=== PATIENT | male | born 1960 | race Caucasian/White ===

== ENCOUNTER 2017-12-18 12:40 | Inpatient (IN) ==
[2017-12-18] MEDS ORDERED: Carvedilol 12.5 MG Tablet ONE (22:15)
[2017-12-19] MEDS ORDERED: Potassium Chlor 20 mEq Premix 20 MEQ/100 ML PIGGYBACK IV.SIG PRN ×2 (00:01)
[2017-12-19] MEDS ORDERED: Potassium Chloride 25 MEQ Effervescent Tablet PO PRN (00:01)
[2017-12-19] MEDS ORDERED: Acetaminophen 325 MG Tablet PO PRN (00:01)
[2017-12-19] MEDS ORDERED: Potassium Phosphate Inj 30 MMOL in Sodium Chlor 0.9% Inj 250 ML IV.SIG PRN (00:01)
[2017-12-19] MEDS ORDERED: Sodium Phosphate Inj 30 MMOL in Sodium Chlor 0.9% Inj 250 ML IV.SIG PRN (00:01)
[2017-12-19] MEDS ORDERED: Magnesium Sulfate Inj 2 GM in Sodium Chlor 0.9% Inj 96 ML IV.SIG PRN (00:01)
[2017-12-19] MEDS ORDERED: Magnesium Oxide 400 MG Tablet PO PRN (00:01)
[2017-12-19] MEDS ORDERED: Magnesium Sulfate Inj 4 GM in Sodium Chlor 0.9% Inj 92 ML IV.SIG PRN (00:01)
[2017-12-19] MEDS ORDERED: Potassium Phosphate 500 MG Soluble Tablet PO PRN ×2 (00:01)
[2017-12-19] MEDS ORDERED: Bisacodyl 10 MG Supp RECTAL PRN (00:01)
[2017-12-19] MEDS ORDERED: Propofol 1000 mg/100 ml Inj 1,000 MG/100 ML BOTTLE IV.CONT PRN (01:00)
[2017-12-19] MEDS: Oral Hygiene Kit OROPHARYNG SCH ×3 (02:07→20:42)
[2017-12-19] MEDS ORDERED: Propofol 1000 mg/100 ml Inj 1,000 MG/100 ML BOTTLE ONE (02:16)
[2017-12-19] MEDS ORDERED: fentaNYL 10 mcg/mL Premix Drip 2,500 MCG/250 ML BAG IV.SIG PRN (02:54)
--- NOTE | 2017-12-19 03:45 | XR ---
EXAM DATE: 12/19/2017 3:35 AM EDT AGE/SEX: 57 years / Male INDICATIONS: Respiratory distress. CLINICAL DATA: This is the patient's subsequent encounter. Patient reports that signs and symptoms h ave been present for 2 days and indicates a pain score of Nonresponsive. MEDICAL/SURGICAL HISTORY: Non-responsive. Pacemaker. COMPARISON: [facility], CHEST SINGLE AP, 12/18/2017. . FINDINGS: Endotracheal tube in good position. NG enters the stomach. Pacer leads unchanged. Mild basilar opacity similar to December 18. No pneumothorax or significant effusi on. CONCLUSION: Mild basilar density, probably atelectasis. Support apparatus in good position. Electronically signed by: Curtis Roque MD 12/19/2017 3:44 AM EDT
[2017-12-19] MEDS ORDERED: Chlorhexidine Gluconate 2% 1 Pack (2 Cloths) TOPICAL PRN (04:00)
[2017-12-19] MEDS: Chlorhexidine Gluconate 2% 1 Pack (2 Cloths) TOPICAL SCH (04:34)
[2017-12-19 05:22] LABS: Baso % (Auto) 0.3 % (0.0-2.0); Eos # (Auto) 0.1 th/mm3 (0.0-0.4); Eos % (Auto) 1.6 % (0.0-4.0); Hematocrit 38.7 % (39.0-51.0); Hemoglobin 12.3 gm/dL (13.0-17.0); Lymph % (Auto) 14.3 % (9.0-44.0); Mean Corpuscular HGB Conc 31.7 % (32.0-36.0); Mean Corpuscular Volume 91.3 fL (80.0-100.0); Mean Platelet Volume 7.3 fL (7.0-11.0); Mono # (Auto) 0.5 th/mm3 (0.0-0.9); Mono % (Auto) 7.7 % (0.0-8.0); Neut # (Auto) 5.5 th/mm3 (1.8-7.7); Neut % (Auto) 76.1 % (16.0-70.0); Platelet Count 144 th/mm3 (150-450); Red Blood Count 4.24 mil/mm3 (4.50-5.90); Red Cell Distribution Width 15.7 % (11.6-17.2); White Blood Count 7.1 th/mm3 (4.0-11.0)
[2017-12-19 05:38] LABS: ABG Base Excess -4.7 mmol/L (-2-2); ABG PCO2 32 mmHg (38-42); ABG PO2 159 mmHg (61-120)
[2017-12-19 05:38] LABS: Chloride 105 meq/L (98-107); Potassium 3.8 meq/L (3.5-5.1); Sodium 137 meq/L (136-145)
[2017-12-19 05:44] LABS: Albumin 3.3 g/dL (3.4-5.0); Anion Gap 12 meq/L (5-15); Carbon Dioxide 19.9 meq/L (21.0-32.0); Glucose,Random 98 mg/dL (74-106); Magnesium 1.9 mg/dL (1.5-2.5)
[2017-12-19 05:45] LABS: Blood Urea Nitrogen 8 mg/dL (7-18)
[2017-12-19 05:47] LABS: Alanine Aminotransferase 55 U/L (12-78); Aspartate Aminotransferase 86 U/L (15-37); Glomerular Filtration Rate Greater Than 89 mL/min (>89)
[2017-12-19 05:51] LABS: Alkaline Phosphatase 90 U/L (45-117); Phosphorus 2.9 mg/dL (2.5-4.9)
[2017-12-19 06:03] LABS: Total Protein 6.7 g/dL (6.4-8.2)
[2017-12-19 06:05] LABS: Creatine Kinase 87 U/L (39-308)
[2017-12-19] MEDS ORDERED: Metoprolol Inj 5 MG/5 ML Vial IV.PUSH PRN (06:55)
--- NOTE | 2017-12-19 07:04 | P.PNCC ---
Subjective Subjective Remarks/Hospital Course: The patient is a 57-year-old male presented to the ED [facility] in respiratory distress. Per report, EMS dispatche received a call for shortness of breath, dispatch stated they could hear audible wheezing. EMS states when they arrived the patient was on his front porch, on his knees , complaining of shortness of breath and chest pain. The patient was severely diaphoretic and they placed him in the ambulance ,he became somewhat unresponsive. They stated he was no longer talking, and had increased work of breathing. The patient was transported utilizing bag valve mask ventilation and oxygen enroute to the hospital. Per EMS report, the patient was tachycardic and it appeared that every once a while he would "shiver, they thought possibly he was being defibrillated by his AICD/pacemaker. No further information is obtainable from EMS. Upon arrival the patient was nonverbal, would withdrawal to pain, but had an elevated work of breathing with a respiratory rate in the 40s and was severely diaphoretic with a heart rate in the 120s. The patient was emergently intubated upon arrival to [place] ED. EKG was performed which revealed atrial fibrillation RVR with a rate of 115. Upon review of information the patient was noted to have an AICD, device with anti-tachycardia rhythm detection that is off-to include atrial tach, atrial fib ,V. fib ,V. tach. It's function is only as a dual demand pacemaker for a base rate of 50. Interrogation was performed by [employer] while patient was in the ED. Review of records from [facility] show that the patient had been seen once by the family medicine team 04/2017 and has a history of atrial fibrillation, and the patient had had the defibrillator function discontinued after an episode of 6 shocks in 1 day secondary to malfunction per review of the records, the patient also had a history of cardiac arrest with a prolonged hospitalization in 2016. Review of medical records revealed the patient has a medical history significant for CHF, atrial fibrillation, hypertension, chronic pain syndrome, scoliosis, DJD peptic ulcer, depression, anxiety, OCD paranoid personality disorder and elevated liver enzymes. The patient also has a history of cervical stenosis C4-C5. Laboratory studies reveal a metabolic acidosis, urine toxicity screen positive for alcohol, and benzodiazepine. Subjective: 12/19: Overnight the patient remained mildly sedated. This a.m. the patient is awake and alert responding to commands. CPAP trials initiated. Objective Vital Signs / I&O: Vital Signs 12/19/17 00:07 12/19/17 01:00 12/19/17 01:15 Temperature 100.0 F H Pulse Rate 106 H 106 H Respiratory Rate 18 17 18 Blood Pressure 117/86 Pulse Oximetry 100 100 100 12/19/17 02:00 12/19/17 03:00 12/19/17 03:20 Temperature Pulse Rate 106 H 108 H 109 H Respiratory Rate 18 17 18 Blood Pressure 119/86 112/86 Pulse Oximetry 100 100 12/19/17 04:00 12/19/17 04:40 12/19/17 05:00 Temperature Pulse Rate 110 H 110 H Respiratory Rate 17 18 17 Blood Pressure 110/84 104/82 Pulse Oximetry 100 100 100 12/19/17 05:39 Temperature 98.3 F Pulse Rate Respiratory Rate Blood Pressure Pulse Oximetry Intake & Output 12/18/17 12/18/17 12/19/17 06:59 18:59 06:59 Weight 94 kg Result Diagrams: 12/19/17 05:03 12/19/17 05:03 Imaging: Chest X-Ray 12/19/17 00:00 CONCLUSION: Mild basilar density, probably atelectasis. Support apparatus in good position. Objective Remarks: GENERAL: This is a well-developed well-nourished obese patient awake and alert intubated following command SKIN: Warm and dry. HEAD: Atraumatic. Normocephalic. EYES: Pupils equal and round. No scleral icterus. No injection or drainage. ENT: No nasal bleeding or discharge. Mucous membranes pink and moist. NECK: Trachea midline. No JVD. CARDIOVASCULAR: Normal rate, regular rhythm. RESPIRATORY: No accessory muscle use. Clear to auscultation. Breath sounds equal bilaterally. GASTROINTESTINAL: Abdomen soft, non-tender, nondistended. No guarding. Bowel sounds active. MUSCULOSKELETAL: Extremities without clubbing, cyanosis, or edema. No obvious deformities. NEUROLOGICAL: Awake and alert. RASS 0. No gross focal/sensory deficits. Follows commands in all 4 extremities. Assessment and Plan - Assessment and Plan Plan: Assessment and Plan Problem List: (1) Pacemaker ICD Code: Z95.0 - Presence of cardiac pacemaker (2) Atrial fibrillation with RVR ICD Code: I48.91 - Unspecified atrial fibrillation Status: Acute (3) Respiratory distress ICD Code: R06.03 - Acute respiratory distress Status: Acute Assessment and Plan Assessment This is a 57-year-old male with a significant cardiac history details unobtainable at this time that presumably went into a cardiac arrhythmia, now intubated and sedated. The patient currently is at risk for further cardiac deterioration admit to ICU. Plan by systems: Neurologic: EtOH use disorder Depression Anxiety OCD Chronic pain syndrome Paranoid personality disorder Propofol infusion to maintain ventilator synchrony Monitor for signs of alcohol withdrawal Seizure precautions Daily sedation vacation Noted patient has C4-C5 cervical stenosis, per patient records patient's wheelchair-bound with noted tremors. Previously being worked up for Parkinson' s 04/2017 CT brain negative Ammonia level 26 Resume home medications when patient is clinically applicable Urine toxicity screen-EtOH 9, positive for benzodiazepines Hold sertraline and BuSpar for now ( home medication)-per reviewed medical records the patient was under care of a psychiatrist in [place] Respiratory: Acute hypoxemic respiratory failure 12/18 patient intubated in ED PRVC mode Repeat ABG-7.3 8/34/170/20/-4.1 Ventilator bundle Duo nebs every 6 hours scheduled and every 2 hours as needed 12/18 CT pulmonary angiogram negative 12/19 chest x-rayatelectasis Begin CPAP trials, obtain SBT plan for extubation Cardiovascular: Implanted AICD/pacemaker Medtronic S/P cardiac Ablation A. fib RVR History of CHF History of cardiac arrest 2016 Hypertension EKG A. fib RVR rate 115, currently A. fib heart rate 90's Maintain MAP greater than 65 Consult cardiology BNP 114-> 624 Metoprolol 2.5 mg every 6 hours as needed for heart rate greater than 100 Initial troponin < 0.02,-> 0.02 Obtain cardiology medical records from [place] Dr. Avila [phone] Continue patient's home medications- flecainide 100 mg BID, carvedilol 25 mg BID, and lisinopril 40 mg/day Obtain echo Renal: Insert and maintain Steward -- Strict I/Os FEN/GI: Gentle hydration normal saline at 42 cc an hour Maintain n.p.o. status for now Bowel regimen Famotidine for GI prophylaxis Zofran for nausea Heme/ID: Follow-up blood urine and sputum cultures Monitor CBC INR 1.1-no previous anticoagulation noted in medical records Endocrine: Glucose monitoring per ICU protocol -- SSI Prophylaxis: GI Prophylaxis Famotidine BID DVT Prophylaxis -- SCDs Heparin subcu BID Lines: Peripheral IVs 2 . central line if indicated my billing statement This patient remains critically ill with one or more organ systems which are or may become a threat to life. I have spent in excess of 47 minutes discontinuously in the care and management of this patient. This time is exclusive of procedures, and includes, but is not limited to, evaluation of the patient, review of the medical record, discussions with family, consultants, nursing staff, or respiratory therapy, and documentation in the medical record. Code Status: Full Discussed Condition With: WATERSHED TENDER at bedside and patient
[2017-12-19] MEDS: Famotidine PF Inj 20 MG/2 ML Vial IV.PUSH SCH ×3 (07:54→21:04)
[2017-12-19] MEDS: Heparin - SQ 10,000 UNITS/ML Vial SQ SCH ×3 (07:54→21:04)
[2017-12-19] MEDS: Lisinopril 20 MG Tablet PO SCH (09:35)
[2017-12-19] MEDS: Carvedilol 12.5 MG Tablet PO SCH ×2 (09:35→21:06)
[2017-12-19] MEDS: Senna/Docusate Sodium 8.6/50 MG Tablet PO SCH ×2 (09:36→21:10)
[2017-12-19] MEDS: Flecainide 100 MG Tablet PO SCH ×2 (09:36→21:07)
[2017-12-19] MEDS ORDERED: ALPRAZolam 0.5 MG Tablet PO PRN (10:56)
[2017-12-19] MEDS: Sertraline 100 MG Tablet PO SCH (12:35)
--- NOTE | 2017-12-19 13:22 | ECHRPT ---
Indication: sob CONCLUSIONS The left ventricular systolic function is normal with an estimated ejection fraction in the range of 55-60%. Normal left ventricular size. Wall thickness is normal. No regional wall motion abnormalities are present. A pacemaker wire is noted. There is a pacemaker wire present in the right atrial cavity. There is trace tricuspid valve regurgitation. The estimated pulmonary arterial pressure is 25.7 mmHg. BP: / HR: Rhythm: Sinus MEASUREMENTS (Male / Female) Normal Values Technical Quality:Poor 2D ECHO LV Diastolic Diameter PLAX 3.7 cm 4.2 - 5.9 / 3.9 - 5.3 cm LV Systolic Diameter PLAX 2.8 cm IVS Diastolic Thickness 1.1 cm 0.6 - 1.0 / 0.6 - 0.9 cm LVPW Diastolic Thickness 1.1 cm 0.6 - 1.0 / 0.6 - 0.9 cm LV Relative Wall Thickness 0.6 RV Internal Dim ED PLAX 2.7 cm LVOT Diameter 1.8 cm LA Systolic Diameter LX 3.2 cm 3.0 - 4.0 / 2.7 - 3.8 cm M-MODE Aortic Root Diameter MM 2.8 cm LA Systolic Diameter MM 3.2 cm LA Ao Ratio MM 1.1 AV Cusp Separation MM 2.2 cm DOPPLER AV Peak Velocity 93.7 cm/s AV Peak Gradient 3.5 mmHg LVOT Peak Velocity 82.9 cm/s LVOT Peak Gradient 2.7 mmHg AV Area Cont Eq pk 2.3 cm LV E' Lateral Velocity 7.3 cm/s LV E' Septal Velocity 12.9 cm/s TR Peak Velocity 198.0 cm/s TR Peak Gradient 15.7 mmHg Right Atrial Pressure 10.0 mmHg Pulmonary Artery Systolic Pressu 25.7 mmHg Right Ventricular Systolic Press 25.7 mmHg PV Peak Velocity 81.4 cm/s PV Peak Gradient 2.7 mmHg FINDINGS LEFT VENTRICLE The left ventricular systolic function is normal with an estimated ejection fraction in the range of 55-60%. Normal left ventricular size. Wall thickness is normal. No regional wall motion abnormalities are present. RIGHT VENTRICLE A pacemaker wire is noted. LEFT ATRIUM The left atrial size is normal. RIGHT ATRIUM There is a pacemaker wire present in the right atrial cavity. ATRIAL SEPTUM Normal atrial septal thickness without atrial level shunting by limited color doppler interrogation. AORTA The aortic root and proximal ascending aorta are normal in size on limited imaging. MITRAL VALVE Structurally normal mitral valve. No mitral valve stenosis or regurgitation. AORTIC VALVE Trileaflet aortic valve. No aortic valve stenosis or regurgitation. TRICUSPID VALVE Structurally normal tricuspid valve. There is trace tricuspid valve regurgitation. The estimated pulmonary arterial pressure is 25.7 mmHg. PULMONARY VALVE No pulmonary valve regurgitation or stenosis. VESSELS The inferior vena cava is normal in size. PERICARDIUM No pericardial effusion. Raul Greene MD, FACC (Electronically Signed) Final Date:19 December 2017 13:21
[2017-12-19] MEDS: Chlorhexidine 0.12% Oral Kit 15 ML UDC OROPHARYNG SCH ×2 (20:42→21:07)
[2017-12-20] MEDS: Oral Hygiene Kit OROPHARYNG SCH (01:44)
[2017-12-20 04:58] LABS: Hematocrit 39.3 % (39.0-51.0); Mean Corpuscular Hemoglobin 27.9 pg (27.0-34.0); Mean Corpuscular Volume 91.1 fL (80.0-100.0); Mean Platelet Volume 7.1 fL (7.0-11.0); Platelet Count 159 th/mm3 (150-450); Red Blood Count 4.32 mil/mm3 (4.50-5.90); Red Cell Distribution Width 15.7 % (11.6-17.2); White Blood Count 7.3 th/mm3 (4.0-11.0)
[2017-12-20 05:03] LABS: Mean Corpuscular HGB Conc 30.6 % (32.0-36.0)
[2017-12-20 05:16] LABS: Alanine Aminotransferase 49 U/L (12-78); Albumin 3.2 g/dL (3.4-5.0); Alkaline Phosphatase 95 U/L (45-117); Anion Gap 9 meq/L (5-15); Aspartate Aminotransferase 65 U/L (15-37); Blood Urea Nitrogen 13 mg/dL (7-18); Calcium 8.8 mg/dL (8.5-10.1); Carbon Dioxide 25.8 meq/L (21.0-32.0); Chloride 102 meq/L (98-107); Glomerular Filtration Rate 69 mL/min (>89); Glucose,Random 118 mg/dL (74-106); Potassium 4.8 meq/L (3.5-5.1); Sodium 137 meq/L (136-145); Total Protein 6.8 g/dL (6.4-8.2)
--- NOTE | 2017-12-20 09:16 | P.PNCA ---
Subjective Interval history: Pt w/o cardiac complaints, in NSR Physical Exam Vital signs: Vital Signs 12/19/17 09:14 12/19/17 09:29 12/19/17 09:44 Temperature Pulse Rate 108 H 110 H 112 H Respiratory Rate 22 24 33 H Blood Pressure 127/91 H 110/90 148/88 H Pulse Oximetry 99 95 99 12/19/17 09:59 12/19/17 10:00 12/19/17 10:14 Temperature Pulse Rate 110 H 110 H 114 H Respiratory Rate 19 18 29 H Blood Pressure 134/94 H 124/89 Pulse Oximetry 96 96 95 12/19/17 10:27 12/19/17 10:29 12/19/17 10:34 Temperature 99.1 F Pulse Rate 114 H 114 H Respiratory Rate 20 Blood Pressure 120/83 Pulse Oximetry 95 12/19/17 10:44 12/19/17 10:53 12/19/17 11:00 Temperature 98.0 F Pulse Rate 130 H 118 H Respiratory Rate 31 H 28 H Blood Pressure 143/85 H Pulse Oximetry 93 L 98 12/19/17 11:12 12/19/17 11:13 12/19/17 11:14 Temperature Pulse Rate 136 H 122 H Respiratory Rate 31 H 27 H Blood Pressure 113/92 H 120/85 Pulse Oximetry 12/19/17 12:00 12/19/17 12:07 12/19/17 12:14 Temperature 98.0 F Pulse Rate 133 H 130 H 116 H Respiratory Rate 32 H 26 H 27 H Blood Pressure 96/84 L 85/66 L Pulse Oximetry 96 98 12/19/17 12:17 12/19/17 12:29 12/19/17 12:34 Temperature Pulse Rate 116 H 112 H 109 H Respiratory Rate 28 H 28 H Blood Pressure 99/60 L 108/84 Pulse Oximetry 96 12/19/17 12:44 12/19/17 13:00 12/19/17 13:30 Temperature Pulse Rate 114 H 114 H 147 H Respiratory Rate 26 H 30 H Blood Pressure 96/84 L Pulse Oximetry 97 12/19/17 14:00 12/19/17 14:08 12/19/17 14:10 Temperature Pulse Rate 128 H 130 H 122 H Respiratory Rate 27 H 29 H 24 Blood Pressure 79/56 L 92/65 L Pulse Oximetry 07/01/18 15:00 12/19/17 15:27 12/19/17 15:29 Temperature Pulse Rate 112 H 112 H 114 H Respiratory Rate 18 21 28 H Blood Pressure 73/59 L 69/59 L Pulse Oximetry 12/19/17 15:30 12/19/17 15:45 12/19/17 16:00 Temperature Pulse Rate 117 H 117 H 118 H Respiratory Rate 22 22 Blood Pressure 99/77 L Pulse Oximetry 96 12/19/17 16:05 12/19/17 16:30 12/19/17 16:59 Temperature 99.0 F Pulse Rate 122 H 114 H Respiratory Rate 32 H 21 Blood Pressure 92/82 L 83/70 L Pulse Oximetry 93 L 12/19/17 17:00 12/19/17 17:28 12/19/17 18:00 Temperature Pulse Rate 114 H 128 H Respiratory Rate 19 23 Blood Pressure 94/64 L Pulse Oximetry 91 L 94 L 12/19/17 18:28 12/19/17 19:00 12/19/17 19:28 Temperature Pulse Rate 136 H 114 H 114 H Respiratory Rate 55 H 26 H 32 H Blood Pressure 96/69 L 96/69 L 78/71 L Pulse Oximetry 99 96 96 12/19/17 19:54 12/19/17 20:00 12/19/17 20:28 Temperature 98.7 F Pulse Rate 116 H 116 H Respiratory Rate 23 40 H Blood Pressure 99/75 L 77/59 L Pulse Oximetry 95 96 12/19/17 21:00 12/19/17 21:05 12/19/17 21:38 Temperature Pulse Rate 116 H 118 H 116 H Respiratory Rate 22 31 H 32 H Blood Pressure 99/75 L 99/75 L 84/67 L Pulse Oximetry 96 96 12/19/17 22:00 12/19/17 22:40 12/19/17 23:00 Temperature Pulse Rate 116 H 115 H 112 H Respiratory Rate 25 H 18 28 H Blood Pressure 84/67 L Pulse Oximetry 99 99 88 L 12/19/17 23:46 12/20/17 00:00 12/20/17 00:07 Temperature 98.4 F Pulse Rate 110 H 108 H 110 H Respiratory Rate 32 H 21 Blood Pressure 98/67 L 88/62 L Pulse Oximetry 94 L 95 12/20/17 00:24 12/20/17 01:00 12/20/17 02:00 Temperature Pulse Rate 108 H 110 H 115 H Respiratory Rate 22 23 22 Blood Pressure 98/67 L Pulse Oximetry 96 95 95 12/20/17 03:00 12/20/17 04:00 12/20/17 05:00 Temperature Pulse Rate 112 H 114 H 112 H Respiratory Rate 23 23 26 H Blood Pressure Pulse Oximetry 96 97 96 12/20/17 05:10 12/20/17 05:59 12/20/17 06:00 Temperature Pulse Rate 112 H 112 H 112 H Respiratory Rate 33 H 20 22 Blood Pressure 104/82 109/81 Pulse Oximetry 96 96 96 Intake & Output 12/19/17 12/20/17 12/20/17 18:59 06:59 18:59 Intake Total 480 / 480 Output Total 550 / 550 800 / 800 Balance -550 / -550 -320 / -320 Weight 86.6 kg Intake: Oral 480 / 480 Output: Urine Amount (Catheter) 550 / 550 800 / 800 Indwelling Urethral Catheter 550 / 550 800 / 800 Other: Date of Last Bowel Movement 12/19/17 12/19/17 # Bowel Movements 3 - Constitutional no acute distress - Routine HEENT Exam Head: Present: normocephalic - Routine Cardiovascular Exam Present: RRR - Detailed Cardiovascular Exam Auscultation: Present: normal physiologic split - Routine Extremities Exam Absent: edema - Urinary Catheter Management Indwelling Urethral Catheter Cath placed during this visit: yes Urethral indwelling: No Insertion date: 12/18/17 Assessment and Plan - Plan IN nsr, LVEF is normal, ICD interrogation shows at/af w/ v sense, all ICD therapies are off. Currently in NSR, no complaints other than his chronic pain, he says he cannot be on anticoagulation due to GI bleeding; he should re-evaluate this with Dr. Potter as an outpt. Will sign off, please call with questions.
--- NOTE | 2017-12-20 10:24 | MB ---
cc: Keegan Arambula DO DATE: 12/19/2017 REASON FOR CONSULTATION: Respiratory distress, atrial fibrillation with rapid ventricular response. HISTORY OF PRESENT ILLNESS: Juancarlos Da Silva is a pleasant 57-year-old male who sees my partner, Dr. Potter, in the office and presented to [facility] emergency room due to respiratory distress. The patient states that he became suddenly short of breath and called 911. Dispatch stated they heard audible wheezing during the episode. The patient then worked [facility] and EMS arrived. At that time, he stated he had shortness of breath and chest pain. He was diaphoretic and became somewhat unresponsive in the ambulance. He had increased work of breathing and was transported utilizing a bag valve mask. Apparently during the ambulance ride he would occasionally shiver and they thought he was being defibrillated by his AICD, although we now know that his AICD portion has been turned off. The patient was emergently intubated on arrival to the emergency room. EKG showed atrial fibrillation with a rapid ventricular response of 115. His pacemaker was interrogated and showed that he has had multiple episodes of atrial fibrillation with rapid ventricular response for some time. Heart rates were never noted to be exceptionally high from a ventricular rate. His detection for ventricular fibrillation and ventricular tachycardia had been turned off, as the patient had previously asked for this, as he got shocked 6 times in 1 day at one point for what he believes were inappropriate shocks. In seeing him this morning, he has since been extubated and feels somewhat better. He states that he does not remember having chest pain, just shortness of breath, although there was a mention of chest pain in the emergency room records from EMS. He denies current chest pain or shortness of breath. PAST MEDICAL HISTORY: 1. Congestive heart failure (per our office records, apparently he had a dilated cardiomyopathy due to tachycardia, and this has since resolved, with his last ejection fraction from 1-2 years ago 55%). 2. Cardiac arrest (2015). The patient is unsure of the exact information from this, but apparently he was extremely tachycardic and was intubated at that time. 4. Atrial fibrillation. 5. Hypertension. 6. Chronic pain. 7. Scoliosis. 8. Degenerative joint disease. 9. Peptic ulcer (patient previously had not been placed on anticoagulation due to significant anemia from this). 10. Depression. 11. Anxiety. 12. Paranoid personality disorder. 13. Cervical stenosis C4/C5. PAST SURGICAL HISTORY: 1. Medtronic AICD (AICD portion had been turned off due to inappropriate shocks. He also had resolution of his cardiomyopathy, with an ejection fraction of 55%). 2. Previous atrial fibrillation ablation. ALLERGIES: NO KNOWN DRUG ALLERGIES. MEDICATIONS: 1. Magnesium 500 mg daily. 2. Lisinopril 40 mg daily. 3. Flecainide 100 mg every 12 hours. 4. Esomeprazole 20 mg daily. 5. Carvedilol 25 mg b.i.d. 6. Buspirone 15 mg t.i.d. 7. Tizanidine 4 mg every 4-6 hours as needed. 8. Trazodone 150 mg as needed. 9. Protonix 40 mg daily. 10. Superior 7.5/325 every 4 hours as needed. 11. Zoloft 100 mg daily. 12. Tramadol 50 mg every 4-6 hours as needed. 13. Gabapentin 100 mg every 6 hours as needed. 14. Eszopiclone 3 mg daily. 15. Meloxicam 15 mg daily as needed. 16. Primidone 50 mg t.i.d. FAMILY HISTORY: Father had a history of coronary artery disease, congestive heart failure, hypertension, and myocardial infarction, and has since passed on. Mother had a history of lung cancer and Sjogren's disease and has passed on. He has a son with cardiomyopathy. SOCIAL HISTORY: The patient previously smoked 1-1/2 packs a day for 30 years, now currently uses an electronic cigarette. He drinks 3 double vodka shots per day. Denies drug abuse. REVIEW OF SYSTEMS: Fourteen systems were reviewed including osteopathic. Pertinent positives and negatives above, otherwise negative. PHYSICAL EXAMINATION: VITAL SIGNS: Temperature 100.1, heart rate 110, blood pressure 136/88, respirations 21, pulse oximetry 98 percent on 2 liters. GENERAL: The patient appears well, in no acute distress, alert, awake, and oriented x 3. HEENT: Extraocular muscles intact. Mucous membranes moist. NECK: Supple. No JVD at 45 degrees. No carotid bruits heard bilaterally. Carotid upstroke is brisk in nature. HEART: Irregularly irregular. Positive first and second heart sounds with no noted murmurs, gallops or rubs. LUNGS: Clear to auscultation bilaterally. No wheezes, rales or rhonchi. ABDOMEN: Soft, nontender, nondistended. No organomegaly noted. EXTREMITIES: Show no clubbing, cyanosis or edema. Femoral and distal pulses are intact bilaterally. NEUROLOGIC: No focal deficits. SKIN: Warm, dry and intact. OSTEOPATHIC: No kyphoscoliosis, lordosis or paraspinal tender points. LABORATORY DATA: Hemoglobin 12.3, hematocrit 38.7, platelets 144, potassium 3.8, BUN 8, creatinine 0.75. Lactic acid 2.2, decreasing to 0.9. Troponin negative x 3. BNP 624. Electrocardiogram (12/18/2017 at 12:43): Atrial fibrillation with rapid ventricular response, indeterminate axis, right bundle branch block. IMPRESSION: 1. Acute hypoxic respiratory failure with mild hypercapnia. 2. Atrial fibrillation with rapid ventricular response, with a history of atrial fibrillation ablation. 3. Medtronic AICD/pacemaker with AICD portion turned off due to inappropriate shocks and resolution of his cardiomyopathy. 4. Previous cardiomyopathy, felt to be tachyarrhythmic, which have since resolved, and most recent ejection fraction of 55%. 5. Lactic acidosis. 6. Alcohol abuse. 7. History of tobacco abuse. 8. Depression/anxiety. 9. Chronic pain syndrome. RECOMMENDATIONS AND PLAN: 1. Mr. Da Silva presented with significant shortness of breath from an unknown cause. 2. Overall, his chest x-ray does not show pulmonary edema, and I do not think that this is due to congestive heart failure. Once placed on the vent, his PaO2 was 500 on 100% on ventilator, which would go against this. 3. He did have a mild elevation of his PaCO2 and was wheezing, although this is not significantly high for a possible chronic obstructive pulmonary disease exacerbation. 4. We will check a 2D echo to look at his overall left ventricular function, cardiac structure, and possible valvopathies. 5. There was a question on whether he had an arrhythmia, as he did have an AICD. Review of the interrogation shows that he has had multiple episodes of atrial fibrillation with rapid ventricular response for a number of months now, but no recorded episodes of ventricular rates extensively high concerning for ventricular tachycardia or ventricular fibrillation. Usual rates when he is in atrial fibrillation with rapid ventricular response have been anywhere from 100-130 beats per minute, which would go against this being a cause for his significant shortness of breath, as he has had these episodes for months now. He will not be placed on anticoagulation for his atrial fibrillation, as he has had significant anemia and gastrointestinal bleed from a peptic ulcer previously. 6. He will continue on his current cardiac medications. As he is still somewhat tachycardic, I would probably consider changing his carvedilol to metoprolol tartrate in an attempt to try to decrease his heart rate. If this does not work, he may need Cardizem to further decrease his heart rate. 7. Further recommendations will be made based on the hospital course. Thank you for allowing me to see Juancarlos Da Silva. If there are any questions, please do not hesitate to call. DO EDEN Tapia/MICKEY , 11:25 PM , 12:39 AM
[2017-12-20] MEDS ORDERED: Flecainide 100 MG Tablet PO SCH (10:30)
[2017-12-20] MEDS ORDERED: Non-Formulary Drug (Trazodone [Trazodone] 150 MG) PO SCH (10:30)
[2017-12-20] MEDS: Sertraline 100 MG Tablet PO SCH (10:33)
[2017-12-20] MEDS: Senna/Docusate Sodium 8.6/50 MG Tablet PO SCH ×2 (10:33→20:27)
[2017-12-20] MEDS: Flecainide 100 MG Tablet PO SCH ×2 (10:36→20:28)
[2017-12-20] MEDS: Heparin - SQ 10,000 UNITS/ML Vial SQ SCH ×2 (10:48→20:30)
[2017-12-20] MEDS ORDERED: Lisinopril 20 MG Tablet PO SCH (11:00)
[2017-12-20] MEDS ORDERED: Gabapentin 100 MG Capsule PO PRN (11:00)
--- NOTE | 2017-12-20 11:29 | P.PN ---
Subjective Interval history: Patient seen and evaluated in follow-up for respiratory failure status post intubation with subsequent extubation. Overnight patient has successfully been extubated and is alert and awake. No new events overnight. Patient request his home medications be resumed. Care plan discussed with ICU nurse and cardiology. Physical Exam Vital signs: Vital Signs 12/19/17 12:00 12/19/17 12:07 12/19/17 12:14 Temperature 98.0 F Pulse Rate 133 H 130 H 116 H Respiratory Rate 32 H 26 H 27 H Blood Pressure 96/84 L 85/66 L Pulse Oximetry 96 98 12/19/17 12:17 12/19/17 12:29 12/19/17 12:34 Temperature Pulse Rate 116 H 112 H 109 H Respiratory Rate 28 H 28 H Blood Pressure 99/60 L 108/84 Pulse Oximetry 96 12/19/17 12:44 12/19/17 13:00 12/19/17 13:30 Temperature Pulse Rate 114 H 114 H 147 H Respiratory Rate 26 H 30 H Blood Pressure 96/84 L Pulse Oximetry 97 12/19/17 14:00 12/19/17 14:08 12/19/17 14:10 Temperature Pulse Rate 128 H 130 H 122 H Respiratory Rate 27 H 29 H 24 Blood Pressure 79/56 L 92/65 L Pulse Oximetry 12/19/17 15:00 12/19/17 15:27 12/19/17 15:29 Temperature Pulse Rate 112 H 112 H 114 H Respiratory Rate 18 21 28 H Blood Pressure 73/59 L 69/59 L Pulse Oximetry 12/19/17 15:30 12/19/17 15:45 12/19/17 16:00 Temperature Pulse Rate 117 H 117 H 118 H Respiratory Rate 22 22 Blood Pressure 99/77 L Pulse Oximetry 96 12/19/17 16:05 12/19/17 16:30 12/19/17 16:59 Temperature 99.0 F Pulse Rate 122 H 114 H Respiratory Rate 32 H 21 Blood Pressure 92/82 L 83/70 L Pulse Oximetry 93 L 12/19/17 17:00 12/19/17 17:28 12/19/17 18:00 Temperature Pulse Rate 114 H 128 H Respiratory Rate 19 23 Blood Pressure 94/64 L Pulse Oximetry 91 L 94 L 12/19/17 18:28 12/19/17 19:00 12/19/17 19:28 Temperature Pulse Rate 136 H 114 H 114 H Respiratory Rate 55 H 26 H 32 H Blood Pressure 96/69 L 96/69 L 78/71 L Pulse Oximetry 99 96 96 12/19/17 19:54 12/19/17 20:00 12/19/17 20:28 Temperature 98.7 F Pulse Rate 116 H 116 H Respiratory Rate 23 40 H Blood Pressure 99/75 L 77/59 L Pulse Oximetry 95 96 12/19/17 21:00 12/19/17 21:05 12/19/17 21:38 Temperature Pulse Rate 116 H 118 H 116 H Respiratory Rate 22 31 H 32 H Blood Pressure 99/75 L 99/75 L 84/67 L Pulse Oximetry 96 96 12/19/17 22:00 12/19/17 22:40 12/19/17 23:00 Temperature Pulse Rate 116 H 115 H 112 H Respiratory Rate 25 H 18 28 H Blood Pressure 84/67 L Pulse Oximetry 99 99 88 L 12/19/17 23:46 12/20/17 00:00 12/20/17 00:07 Temperature 98.4 F Pulse Rate 110 H 108 H 110 H Respiratory Rate 32 H 21 Blood Pressure 98/67 L 88/62 L Pulse Oximetry 94 L 95 12/20/17 00:24 12/20/17 01:00 12/20/17 02:00 Temperature Pulse Rate 108 H 110 H 115 H Respiratory Rate 22 23 22 Blood Pressure 98/67 L Pulse Oximetry 96 95 95 12/20/17 03:00 12/20/17 04:00 12/20/17 05:00 Temperature Pulse Rate 112 H 114 H 112 H Respiratory Rate 23 23 26 H Blood Pressure Pulse Oximetry 96 97 96 12/20/17 05:10 12/20/17 05:59 12/20/17 06:00 Temperature Pulse Rate 112 H 112 H 112 H Respiratory Rate 33 H 20 22 Blood Pressure 104/82 109/81 Pulse Oximetry 96 96 96 12/20/17 10:23 Temperature Pulse Rate 84 Respiratory Rate 18 Blood Pressure Pulse Oximetry 95 Intake & Output 12/19/17 12/20/17 12/20/17 18:59 06:59 18:59 Intake Total 480 / 480 Output Total 550 / 550 800 / 800 Balance -550 / -550 -320 / -320 Weight 86.6 kg Intake: Oral 480 / 480 Output: Urine Amount (Catheter) 550 / 550 800 / 800 Indwelling Urethral Catheter 550 / 550 800 / 800 Other: Date of Last Bowel Movement 12/19/17 12/19/17 # Bowel Movements 3 - Constitutional no acute distress, average body habitus - Routine HEENT Exam Head: Present: normocephalic, atraumatic Eye: Present: EOMI, PERRL ENT: Present: mucous membranes moist, dentition normal - Routine Neck Exam Present: supple, full ROM - Routine Respiratory Exam Present: CTA bilaterally - Routine Cardiovascular Exam Present: RRR, S1, S2 - Routine Abdominal Exam Present: soft, normoactive bowel sounds - Routine Extremities Exam Present: full ROM, pulses intact - Routine Skin Exam Present: intact, dry - Routine Neurological Exam Present: alert, oriented X3, CN II-XII intact - Detailed Neurological Exam: Coma Scale Verbal Response: Oriented Motor Response: Obey commands - Routine Psychiatric Exam Present: normal affect, normal thought process - Urinary Catheter Management Indwelling Urethral Catheter Cath placed during this visit: yes Urethral indwelling: No Insertion date: 12/18/17 Results - Labs CBC & Chem 7: 12/20/17 04:40 12/20/17 04:40 Laboratory Results - last 24 hr 12/20/17 12/20/17 12/20/17 04:40 04:40 04:40 WBC 7.3 RBC 4.32 L Hgb 12.0 L Hct 39.3 MCV 91.1 MCH 27.9 MCHC 30.6 L RDW 15.7 Plt Count 159 MPV 7.1 Sodium 137 Potassium 4.8 D Chloride 102 Carbon Dioxide 25.8 Anion Gap 9 BUN 13 Creatinine 1.10 Estimated GFR 69 L Random Glucose 118 H Calcium 8.8 D Phosphorus 3.0 Magnesium 2.0 Total Bilirubin 0.9 AST 65 H ALT 49 Alkaline Phosphatase 95 B-Natriuretic Peptide Total Protein 6.8 Albumin 3.2 L 12/20/17 04:40 WBC RBC Hgb Hct MCV MCH MCHC RDW Plt Count MPV Sodium Potassium Chloride Carbon Dioxide Anion Gap BUN Creatinine Estimated GFR Random Glucose Calcium Phosphorus Magnesium Total Bilirubin AST ALT Alkaline Phosphatase B-Natriuretic Peptide 580 H Total Protein Albumin Assessment and Plan - Assessment (1) Respiratory failure Code(s): J96.90 - Respiratory failure, unspecified, unspecified whether with hypoxia or hypercapnia Status: Acute Plan: Status post intubation and extubation. Doing much better. Continue with O2 as needed, patient currently on room air Ambulate and follow clinically (2) Atrial fibrillation with RVR Code(s): I48.91 - Unspecified atrial fibrillation Status: Acute Plan: Currently rate controlled Cardiology follow-up appreciated Patient will continue his antiarrhythmics and monitor on telemetry Follow-up with Dr. Potter as an outpatient (3) Chronic pain Code(s): G89.29 - Other chronic pain Status: Acute Plan: Resume home medications which are multiple.
[2017-12-20] MEDS: Gabapentin 100 MG Capsule PO SCH ×3 (13:27→22:20)
[2017-12-20] MEDS: Metoprolol Tartrate 25 MG Tablet PO SCH ×2 (13:32→18:46)
[2017-12-20] MEDS: Primidone 50 MG Tablet PO SCH ×2 (13:33→18:45)
[2017-12-20] MEDS: Carvedilol 12.5 MG Tablet PO SCH ×2 (13:33→20:28)
[2017-12-20] MEDS: Chlorhexidine 0.12% Oral Kit 15 ML UDC OROPHARYNG SCH (20:25)
[2017-12-20] MEDS ORDERED: traZODone 50 MG Tablet PO PRN (21:00)
[2017-12-21] MEDS: Oral Hygiene Kit OROPHARYNG SCH ×5 (02:40→16:44)
[2017-12-21] MEDS: Chlorhexidine Gluconate 2% 1 Pack (2 Cloths) TOPICAL SCH ×2 (03:59→06:40)
[2017-12-21] MEDS: Sod Chloride 0.9% Inj 1,000 ML IV.SIG SCH ×4 (06:39→14:46)
[2017-12-21] MEDS: Metoprolol Tartrate 25 MG Tablet PO SCH ×4 (06:41→17:16)
[2017-12-21] MEDS: Chlorhexidine 0.12% Oral Kit 15 ML UDC OROPHARYNG SCH ×2 (06:41→09:26)
[2017-12-21] MEDS: Lisinopril 20 MG Tablet PO SCH ×2 (06:41→08:34)
[2017-12-21] MEDS: Meloxicam 15 MG Tablet PO SCH ×2 (06:42→09:22)
[2017-12-21] MEDS: Flecainide 100 MG Tablet PO SCH (08:33)
[2017-12-21] MEDS: Carvedilol 12.5 MG Tablet PO SCH (08:34)
[2017-12-21] MEDS: Primidone 50 MG Tablet PO SCH ×3 (09:21→17:16)
[2017-12-21] MEDS: Gabapentin 100 MG Capsule PO SCH ×3 (09:21→17:16)
[2017-12-21] MEDS: Sertraline 100 MG Tablet PO SCH (09:22)
[2017-12-21] MEDS: Heparin - SQ 10,000 UNITS/ML Vial SQ SCH (09:26)
[2017-12-21] MEDS: Senna/Docusate Sodium 8.6/50 MG Tablet PO SCH (09:27)
--- NOTE | 2017-12-21 11:43 | P.PNIM ---
Subjective Interval history: Patient apparently admitted 12/18 with acute respiratory failure and acidosis in atrial fibrillation with rapid ventricular rate. He is now status post extubation and transferred to our team from the critical care team. He seen by cardiology and recommended for telemetry with current medications to adjust as needed for persistent A. fib. 12/21 Patient says he had some diarrhea and lightheadedness with elevated blood pressure overnight. A. fib appears to be controlled now. No new complaints per nursing staff. Sinus rhythm on telemetry. Echocardiogram within normal limits Physical Exam Vital signs: Vital Signs 12/20/17 12:00 12/20/17 14:00 12/20/17 16:00 Temperature Pulse Rate 67 76 69 Respiratory Rate Blood Pressure Pulse Oximetry 12/20/17 18:00 12/20/17 20:00 12/20/17 20:26 Temperature 96.6 F L 97.5 F L Pulse Rate 73 88 Respiratory Rate 17 20 20 Blood Pressure 117/81 118/71 Pulse Oximetry 98 12/20/17 21:15 12/21/17 00:00 12/21/17 08:00 Temperature 96.4 F L 98.2 F Pulse Rate 78 72 77 Respiratory Rate 18 20 17 Blood Pressure 124/79 150/67 H Pulse Oximetry 99 97 98 12/21/17 09:05 Temperature Pulse Rate Respiratory Rate 18 Blood Pressure Pulse Oximetry Intake & Output 12/20/17 12/21/17 12/21/17 18:59 06:59 18:59 Intake Total 480 / 480 Balance 480 / 480 Weight 184 kg Intake: Oral 480 / 480 Other: # Voids 3 Date of Last Bowel Movement 12/19/17 # Bowel Movements 1 - Constitutional no acute distress, average body habitus - Routine HEENT Exam Head: Present: normocephalic, atraumatic Eye: Present: EOMI, PERRL - Routine Neck Exam Present: supple, full ROM - Routine Respiratory Exam Present: CTA bilaterally - Routine Cardiovascular Exam Present: RRR, S2 - Routine Skin Exam Present: intact - Urinary Catheter Management Indwelling Urethral Catheter Cath placed during this visit: yes Urethral indwelling: No Reason for continuing: Terminally ill/Comfort care Insertion date: 12/18/17 Results - Labs CBC & Chem 7: 12/20/17 04:40 12/20/17 04:40 - Imaging ITS Impressions Chest X-Ray 12/19/17 00:00 CONCLUSION: Mild basilar density, probably atelectasis. Support apparatus in good position. - Procedures intubated, extubated, echo Assessment and Plan - Assessment (1) Respiratory failure Code(s): J96.90 - Respiratory failure, unspecified, unspecified whether with hypoxia or hypercapnia Status: Acute Plan: Status post intubation and extubation. Doing much better. Continue with O2 as needed, patient currently on room air Ambulate and follow clinically Echo unremarkable Etiology unclear (2) Atrial fibrillation with RVR Code(s): I48.91 - Unspecified atrial fibrillation Status: Acute Plan: Currently rate controlled Cardiology follow-up appreciated Patient will continue his antiarrhythmics and monitor on telemetry Follow-up with Dr. Potter as an outpatient (3) Chronic pain Code(s): G89.29 - Other chronic pain Status: Acute Plan: continue home medications which are multiple.
[2017-12-21] MEDS ORDERED: Sod Chloride 0.9% Inj 1,000 ML IV.CONT SCH (12:00)
[2017-12-21] MEDS: Cholestyramine Light 4 GM Packet PO SCH (16:39)
[2017-12-22] MEDS: Cholestyramine Light 4 GM Packet PO SCH ×2 (00:07→08:05)
[2017-12-22] MEDS: Carvedilol 12.5 MG Tablet PO SCH ×2 (00:10→08:02)
[2017-12-22] MEDS: Gabapentin 100 MG Capsule PO SCH ×2 (00:11→08:01)
[2017-12-22] MEDS: Senna/Docusate Sodium 8.6/50 MG Tablet PO SCH ×2 (00:14→08:05)
[2017-12-22] MEDS: Flecainide 100 MG Tablet PO SCH ×2 (00:15→08:01)
[2017-12-22] MEDS: Sod Chloride 0.9% Inj 1,000 ML IV.SIG SCH (00:26)
[2017-12-22] MEDS: Chlorhexidine 0.12% Oral Kit 15 ML UDC OROPHARYNG SCH (00:28)
[2017-12-22] MEDS: Heparin - SQ 10,000 UNITS/ML Vial SQ SCH ×2 (00:29→08:04)
[2017-12-22] MEDS: Oral Hygiene Kit OROPHARYNG SCH ×2 (02:03→05:25)
[2017-12-22] MEDS: Chlorhexidine Gluconate 2% 1 Pack (2 Cloths) TOPICAL SCH (05:22)
[2017-12-22] MEDS: Primidone 50 MG Tablet PO SCH (08:01)
[2017-12-22] MEDS: Lisinopril 20 MG Tablet PO SCH (08:02)
[2017-12-22] MEDS: Metoprolol Tartrate 25 MG Tablet PO SCH (08:02)
--- NOTE | 2017-12-22 12:17 | P.PNIM ---
Subjective Interval history: resting comfortably- no chest pain or sob and wants to go home. Physical Exam Vital signs: Vital Signs 12/21/17 13:19 12/21/17 14:28 12/21/17 16:00 Temperature 96.4 F L Pulse Rate 80 Respiratory Rate 18 17 Blood Pressure 134/82 Pulse Oximetry 97 96 12/21/17 19:31 12/21/17 20:00 12/21/17 20:54 Temperature 96.4 F L Pulse Rate 69 Respiratory Rate 18 20 Blood Pressure 135/84 Pulse Oximetry 100 98 12/21/17 22:00 12/22/17 00:00 12/22/17 04:00 Temperature 96.5 F L 96.6 F L Pulse Rate 58 L 64 64 Respiratory Rate 20 18 Blood Pressure 153/84 H 129/86 Pulse Oximetry 98 97 12/22/17 07:55 12/22/17 08:36 Temperature 96.4 F L Pulse Rate 63 77 Respiratory Rate 16 18 Blood Pressure 157/97 H Pulse Oximetry 99 100 Intake & Output 12/21/17 12/22/17 12/22/17 18:59 06:59 18:59 Intake Total 720 / 720 480 / 480 Output Total 401 / 401 Balance 720 / 720 79 / 79 Weight 184 kg Intake: Oral 720 / 720 480 / 480 Output: Urine 400 / 400 Stool Other: # Voids 7 5 Date of Last Bowel Movement 12/21/17 # Bowel Movements 5 3 - Constitutional no acute distress - Routine HEENT Exam Eye: Present: PERRL - Routine Respiratory Exam Present: CTA bilaterally - Routine Cardiovascular Exam Present: RRR - Routine Abdominal Exam Present: soft - Routine Extremities Exam Present: full ROM - Routine Neurological Exam Present: alert, oriented X3 - Urinary Catheter Management Indwelling Urethral Catheter Cath placed during this visit: yes Urethral indwelling: No Reason for continuing: Terminally ill/Comfort care Insertion date: 12/18/17 Results - Labs CBC & Chem 7: 12/20/17 04:40 12/20/17 04:40 Laboratory Results - last 24 hr 12/21/17 20:48 Stl C.difficile Tox PCR Negative St C. diff Tox Epid 027 Negative - Procedures intubated, extubated, echo Assessment and Plan - Assessment (1) Respiratory failure Code(s): J96.90 - Respiratory failure, unspecified, unspecified whether with hypoxia or hypercapnia Status: Acute Plan: Status post intubation and extubation. Doing much better. Continue with O2 as needed, patient currently on room air Ambulate and follow clinically Echo unremarkable Etiology unclear (2) Atrial fibrillation with RVR Code(s): I48.91 - Unspecified atrial fibrillation Status: Acute Plan: Currently rate controlled Cardiology follow-up appreciated Patient will continue his antiarrhythmics and monitor on telemetry Follow-up with Dr. Potter as an outpatient. 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 (3) Chronic pain Code(s): G89.29 - Other chronic pain Status: Acute Plan: continue home medications which are multiple. - Plan Discharge Planning: dc home today with f/u by pcp and cardiology.
--- NOTE | 2018-01-15 11:36 | P.DS ---
Date of admission: 12/18/17 15:43 Primary care physician: No Primary Care Physician Brief History from admission: The patient is a 57-year-old male presented to the ED [facility] in respiratory distress. Per report, EMS dispatche received a call for shortness of breath, dispatch stated they could hear audible wheezing. EMS states when they arrived the patient was on his front porch, on his knees , complaining of shortness of breath and chest pain. The patient was severely diaphoretic and they placed him in the ambulance ,he became somewhat unresponsive. They stated he was no longer talking, and had increased work of breathing. The patient was transported utilizing bag valve mask ventilation and oxygen enroute to the hospital. Per EMS report, the patient was tachycardic and it appeared that every once a while he would "shiver, they thought possibly he was being defibrillated by his AICD/pacemaker. DS: Diagnosis - Discharge Diagnosis (1) Respiratory failure Status: Acute (2) Atrial fibrillation with RVR Status: Acute (3) Chronic pain Status: Acute DS: Summary Hospital Course: (1) Respiratory failure Code(s): J96.90 - Respiratory failure, unspecified, unspecified whether with hypoxia or hypercapnia Status: Acute Plan: Status post intubation and extubation. Doing much better. Continue with O2 as needed, patient currently on room air Ambulate and follow clinically Echo unremarkable Etiology unclear (2) Atrial fibrillation with RVR Code(s): I48.91 - Unspecified atrial fibrillation Status: Acute Plan: Currently rate controlled Cardiology follow-up appreciated Patient will continue his antiarrhythmics and monitor on telemetry Follow-up with Dr. Potter as an outpatient. 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 (3) Chronic pain Code(s): G89.29 - Other chronic pain Status: Acute Plan: continue home medications which are multiple. - Time Spent with Patient Total time spent providing and/or coordinating discharge services: Less than 30 minutes Results Procedures completed during hospitalization: intubated, extubated, echo - Impressions ITS Impressions Chest X-Ray 12/19/17 00:00 CONCLUSION: Mild basilar density, probably atelectasis. Support apparatus in good position. Discharge Plan - Discharge Disposition Patient Disposition: Discharge Home - Discharge Condition Condition: Good - Discharge Order Discharge Orders: Discharge Order (Routine); Ordered 12/22/17 Ordered By: Breezy Gee - Discharge Details Anticipated Discharge Date: 12/22/17 - Physicians Team Primary Care Provider: Primary Care Hien Almaraz Attending Provider: Breezy Gee Other Providers: Keegan Arambula DO ; Alberta Rios MD - Rxs /Orders / Referrals /Forms Prescriptions: Continue buspirone 15 mg Tablet 15 mg PO TID carvedilol 25 mg Tablet 25 mg PO BID esomeprazole mag-glycerin 20 mg Kit, [place] 20 mg PO DAILY eszopiclone 3 mg Tablet 3 mg PO DAILY flecainide 100 mg Tablet 100 mg PO Q12H gabapentin 100 mg Capsule 100 mg PO QID PRN (Reason: Pain) hydrocodone-acetaminophen [[place]] 7.5-325 mg Tablet 1 tab PO Q4H PRN (Reason: Pain) lisinopril 40 mg Tablet 40 mg PO DAILY magnesium 250 mg Tablet 500 mg PO DAILY meloxicam 15 mg Tablet 15 mg PO DAILY PRN (Reason: Pain) primidone 50 mg Tablet 50 mg PO TID sertraline [Zoloft] 100 mg Tablet 100 mg PO DAILY tizanidine 4 mg Tablet 4 mg PO Q6-8H PRN (Reason: Pain) tramadol 50 mg Tablet 50 mg PO Q4-6H PRN (Reason: Pain) trazodone 150 mg Tablet 150 mg PO PRN Discontinued pantoprazole [Protonix] 40 mg Tablet,Delayed Release (Dr/Ec) 40 mg PO DAILY Referrals: Primary Care Hien Almaraz [Primary Care Provider] - See Instructions - Discharge Instructions Patient Printed Instructions: A-fib (Atrial Fibrillation) (GEN), Shortness of Breath (GEN)
== END 2017-12-22 14:23 | disposition home or self-care (01) ==
LOC: PHEDA 15:43 → PHICU 17:58 → PH3 12-20 17:43
PROVIDERS: ADMIT Internal Medicine; ATTEND Internal Medicine